=== PATIENT | female | born 1975 | race Caucasian/White ===

== ENCOUNTER 2016-10-03 20:27 | Inpatient (IN) | payer OTHER ==
--- NOTE | 2016-10-03 20:29 | EDPHY ---
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 Tonight, she was at home and then called a friend saying she needed help. History from friend and EMS; patient amnestic. Another co-worker went to her house and found her altered in the closet. The patient says I think I hit my head multiple times but no further history is available. She does not remember the event. She keeps pointing to her forehead where there is a small hematoma on the left side saying that it hurts there but no where else. REVIEW OF SYSTEMS: Eye: no change in vision Cardiac: no chest pain, unknown syncope Pulmonary: no SOB Abdomen: no vomiting or abdominal pain Musculoskeletal: no back pain or neck pain Neuro: no headache, denies weakness or numbness in extremities. A comprehensive 10 point review of systems and further history is otherwise unobtainable because of the patient's altered mental status on arrival. PAST MEDICAL HISTORY: Asthma Social history: No alcohol today. 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 General Appearance: Patient is alert but confused, does follow commands. Eyes: No scleral icterus. Extraocular motion intact. ENT, Mouth: Normal mucous membranes. No tongue laceration or abrasion. Left forehead hematoma 1.5 cm. Respiratory: Normal respiratory effort, breath sounds equal, lungs are clear to auscultation. Cardiovascular: Regular rate and rhythm. Gastrointestinal: Abdomen is soft and non tender. Neurological: Alert, oriented to 2016 but thinks it is August. Knows it is Monday. She is perseverating and continues to repeat: I think I hit my head multiple times. Speech otherwise fluent. Face symmetric, normal movement and sensation in all extremities. Skin: Warm and dry, no rashes. Musculoskeletal: No cervical, thoracic or lumbar spine tenderness. Psychiatric: Not agitated. Emergency Department course/MDM: Patient arrived as a limited trauma activation. Dr. Maravilla from Neurosurgery present on arrival to evaluate the patient. 2049: Patient still perseverating. Plan for trauma admission. Still in a collar. Patient evaluated personally by Dr. Maravilla and Dr. June in the emergency department. Admission for perseveration after probable head trauma. Will be seen by Cardiology because of abnormal EKG. I think seizure is less likely as she did not have incontinence or tongue biting. Constitutional: Initial Vital Signs Temperature (C) 37 C 10/03/16 21:07 Heart Rate 83 10/03/16 21:07 Respiratory Rate 18 10/03/16 21:07 Blood Pressure 106/76 10/03/16 21:07 O2 Sat (%) 97 10/03/16 21:07 O2 Delivery Mode Room Air Allergies/Adverse Reactions: Sulfa (Sulfonamide Antibiotics) Allergy (Mild, Verified 10/03/16 21:50) prochlorperazine [From Compazine] Allergy (Verified 10/03/16 21:05) prochlorperazine edisylate [From Compazine] Allergy (Verified 10/03/16 21:50) prochlorperazine maleate [From Compazine] Allergy (Verified 10/03/16 21:05) flu vaccine Allergy (Uncoded 10/03/16 21:50) Anaphylaxis Home Medications: Medication Instructions Recorded Albuterol [Ventolin Hfa Inhaler] 2 puffs IH Q6H PRN 10/03/16 Medical Decision Making - Diagnostics EKG Interpretation: 12-lead EKG interpreted by me; official reading is in trace master. My interpretation is ventricular bigeminy. Rate 83. Imaging: CT head and cervical spine reported to me by Dr. Isbell both negative. Differential Diagnosis: Differential diagnosis considered for head injury including but not limited to concussion, skull fracture, intraparenchymal contusion, subarachnoid, subdural and epidural hematoma. Consult/Admit Bed Type: [place] 852pm, [facility] 2150 will see tonight - Data Points Laboratory Results: Laboratory Results 10/03/16 20:29 10/03/16 20:29 10/03/16 10/03/16 20:29 20:24 WBC 12.92 H 10^3/uL (3.80-9.50) RBC 4.86 10^6/uL (4.18-5.33) Hgb 15.1 g/dL (12.6-16.3) Hct 45.0 % (38.0-47.0) MCV 92.6 fL (81.5-99.8) MCH 31.1 pg (27.9-34.1) MCHC 33.6 g/dL (32.4-36.7) RDW 11.9 % (11.5-15.2) Plt Count 285 10^3/uL (150-400) MPV 9.7 fL (8.7-11.7) Neut % (Auto) 65.5 % (39.3-74.2) Lymph % (Auto) 25.3 % (15.0-45.0) [place] % (Auto) 6.5 % (4.5-13.0) Eos % (Auto) 1.9 % (0.6-7.6) Baso % (Auto) 0.5 % (0.3-1.7) Nucleat RBC Rel Count 0.0 % (0.0-0.2) Absolute Neuts (auto) 8.45 H 10^3/uL (1.70-6.50) Absolute Lymphs (auto) 3.27 H 10^3/uL (1.00-3.00) Absolute Monos (auto) 0.84 H 10^3/uL (0.30-0.80) Absolute Eos (auto) 0.25 10^3/uL (0.03-0.40) Absolute Basos (auto) 0.07 10^3/uL (0.02-0.10) Absolute Nucleated RBC 0.00 10^3/uL (0-0.01) Immature Gran % 0.3 % (0.0-1.1) Immature Gran # 0.04 10^3/uL (0.00-0.10) PT 13.2 SEC (12.0-15.0) INR 1.01 (0.83-1.16) APTT 27.0 SEC (23.0-38.0) Sodium 140 mEq/L (134-144) Potassium 4.3 mEq/L (3.5-5.2) Chloride 105 mEq/L (97-110) Carbon Dioxide 26 mEq/l (22-31) Anion Gap 9 mEq/L (8-16) BUN 10 mg/dL (7-23) Creatinine 0.7 mg/dL (0.6-1.0) Estimated GFR > 60 Glucose 80 mg/dL (70-100) Calcium 9.2 mg/dL (8.5-10.4) TSH 3.750 uIU/mL (0.465-4.680) Beta HCG, Qual NEGATIVE Ethyl Alcohol < 10 mg/dL (0-10) Departure - Departure Disposition: [facility] Inpatient Acute Clinical Impression: Concussion, Ventricular bigeminy Condition: Fair
[2016-10-03 20:52] LABS: % IMMATURE GRANULYOCYTES 0.3 % (0.0-1.1); ABSOLUTE IMMATURE GRANULOCYTES 0.04 10^3/uL (0.00-0.10); ADD DIFF? NO; ADD MORPH? NO; ADD SCAN? NO; ATYPICAL LYMPHOCYTE FLAG 0 (0-99); FRAGMENT RBC FLAG 0 (0-99); HEMOGLOBIN 15.1 g/dL (12.6-16.3); LEFT SHIFT FLG 0 (0-99); LIPEMIA HEMOLYSIS FLAG 80 (0-99); MEAN CELL HEMOGLOBIN 31.1 pg (27.9-34.1); MEAN CELL HEMOGLOBIN CONCENTR. 33.6 g/dL (32.4-36.7); MEAN CELL VOLUME 92.6 fL (81.5-99.8); MEAN PLATELET VOLUME 9.7 fL (8.7-11.7); PLATELET CLUMPS FLAG 0 (0-99); PLATELET COUNT 285 10^3/uL (150-400); RED BLOOD CELL COUNT 4.86 10^6/uL (4.18-5.33); RED CELL DISTRIBUTION WIDTH 11.9 % (11.5-15.2)
[2016-10-03 20:53] LABS: INR 1.01 (0.83-1.16); PROTIME(PATIENT) 13.2 SEC (12.0-15.0)
[2016-10-03 21:02] LABS: ANION GAP 9 mEq/L (8-16); CALCIUM 9.2 mg/dL (8.5-10.4); CARBON DIOXIDE 26 mEq/l (22-31); CHLORIDE 105 mEq/L (97-110); CREATININE 0.7 mg/dL (0.6-1.0); ETHANOL SERUM < 10 mg/dL (0-10); GLOMERULAR FILTRATION RATE > 60; GLUCOSE 80 mg/dL (70-100); POTASSIUM 4.3 mEq/L (3.5-5.2); SODIUM 140 mEq/L (134-144)
--- NOTE | 2016-10-03 21:13 | CT ---
CT Head (Without Contrast) October 07, 2016 at 2048 hours. Indication: Head trauma. Altered mental status.. Technique: Standard noncontrast head CT protocol utilizing 5 mm thick collimated slices and field of view 23 cm. Dose reduction techniques were utilized. Findings: The brain is normally developed. No intracranial hemorrhage, mass lesion, swelling, or ex traaxial fluid collection. The ventricles are normal caliber and midline. The hernández-white matter has n ormal attenuation. The bones are unremarkable. Minimal mucous membrane thickening is seen in the ethm oid and maxillary sinuses.. Impression: Minimal chronic sinus related change. Otherwise unremarkable. Comment: Case was discussed Tate Moya PA-C on October 03, [address] Cervical Spine Without Contrast at 2048 hours History: Trauma. Technique: 1.25 mm helical images were obtained from the base of the skull through T2 without contras t. Reformatted 0.625 mm images were obtained and reviewed with multiplanar evaluation. Dose reduction techniques were utilized. Findings: No evidence for fracture. Disk heights are maintained. No significant spondylolisthesis. No evidence for prevertebral soft tissue swelling. No significant spinal canal or neural foraminal encr oachment. IMPRESSION: No evidence for acute fracture. Results discussed with Tate Moya PA-C..
[2016-10-03] MEDS ORDERED: ACETAMINOPHEN 325 MG TAB PO PRN (21:38)
--- NOTE | 2016-10-03 21:43 | CPEKG ---
Heart Rate: 83 RR Interval: 723 P-R Interval: 144 QRSD Interval: 108 QT Interval: 400 QTC Interval: 470 P [place]: 75 QRS [place]: 70 T Wave [place]: 66 EKG Severity - ABNORMAL ECG - EKG Impression: SINUS RHYTHM EKG Impression: VENTRICULAR BIGEMINY EKG Impression: PROBABLE LEFT ATRIAL ABNORMALITY EKG Impression: INCOMPLETE RIGHT BUNDLE BRANCH BLOCK EKG Impression: PROBABLE ANTEROSEPTAL INFARCT, AGE INDETERM Electronically Signed By: Eze Samaniego 03-Oct-2016 23:51:12
[2016-10-03] MEDS ORDERED: ALBUTEROL 60 PUFFS/8 GM MDI IH PRN (21:53)
[2016-10-04] MEDS ORDERED: ONDANSETRON DISINTEGRATING 4 MG TAB PO PRN (03:00)
[2016-10-04] MEDS ORDERED: ONDANSETRON DISINTEGRATING 4 MG TAB ONE (03:07)
--- NOTE | 2016-10-04 07:18 | GCON ---
[f rep st] CONSULTATION NEUROSURGICAL EMERGENCY ROOM CONSULTATION DATE OF CONSULTATION: 10/03/2016 CHIEF COMPLAINT: The patient is a 41-year-old woman with a concussion/closed head injury. HISTORY OF PRESENT ILLNESS: The patient has no significant past medical history , and was in her normal state of health today and spoke to her human resources office manager on the drive home. At some point shortly thereafter, she called that same person repeatedly asking for help. The human resources office manager called one of the patient 's neighbors whom she knew and worked with, who went over to the patient's house and found the dogs inside and the patient laying in the closet on the floor in a pile of clothing and very confused, but awake. Emergency Medical Service was activated and the porcelain buildup assistant arrived and found her in the same condition, confused, but awake and alert. She was transported to [facility] emergency room where a CT scan of the head and neck were preliminarily negative. She presents now for neurosurgical consultation. The patient notes pain in her forehead, as well as jaw pain and popping. She denies any focal neurologic deficits. PAST MEDICAL/SURGICAL HISTORY: ORIF of left wrist, ectopic requiring surgery. MEDICATIONS ON ADMISSION: Albuterol inhaler, and ibuprofen once in a while. Had cold medicine recently. DRUG ALLERGIES: Sulfa, Compazine, flu shot. SOCIAL HISTORY: The patient is and drinks socially, but does not smoke. She lives alone with 2 large dogs, one weighing about 150 pounds. FAMILY HISTORY: Noncontributory. NEUROLOGIC EXAMINATION: Patient is awake and alert, but confused. She knows the day of the week, but not the date. Her pupils are equal and reactive. Her extraocular movements are intact. Her face is symmetric. She has 5/5 motor strength throughout with reflexes and sensation within normal limits. Patient has no C-spine tenderness. On personal review of her brain and C-spine CT, both are unremarkable. She is having quite a bit of PVC's on the rhythm on her monitor. IMPRESSION/RECOMMENDATIONS: This is a 41-year-old woman with a closed head injury/concussion, with continued perseveration. I will clear her C-spine in the emergency room, and we will admit her to the step-down for q.1 hour neuro checks overnight and re-evaluate in the morning. I do not think there is any indication for seizure prophylaxis. We will obtain a 12 lead EKG and consult cardiology for evaluation of these frequent PVCs. /[id number]/MODL MTDD
--- NOTE | 2016-10-04 08:08 | GCON ---
[f rep st] CONSULTATION DATE OF CONSULTATION: 10/03/2016 REASON FOR EVALUATION: Fall and possible trauma. HISTORY OF PRESENT ILLNESS: 41-year-old healthy female admitted to the hospital this evening after found down in her closet by her co-worker/neighbor. She was in her usual state of health earlier today. She reports having eaten dinner. She reports while putting clothes away in her closet, "I hit my head." She contacted her neighbor requesting for help, where she was found down in her closet perseverating. She was brought to the emergency room by EMS. She was noted to have multiple PVCs en route. At present time, patient is with complaint of frontal head pain only, as well as left jaw pain. She denies headaches or visual changes. She denies chest pain or shortness of breath. She denies abdominal complaints. She denies extremity numbness or tingling. She denies neck or back pain. She denies any antecedent history of similar episodes. She denies a history of seizure disorder or migraine headaches. She denies any prior cardiac history. PAST MEDICAL HISTORY: Asthma. PAST SURGICAL HISTORY: Closed reduction of left wrist fracture, unilateral salpingo-oophorectomy, and basal cell skin carcinoma. MEDICATIONS: Asthma inhaler p.r.n. ALLERGIES: Sulfa. SOCIAL HISTORY: No significant alcohol or tobacco. 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 FAMILY HISTORY: Noncontributory. REVIEW OF SYSTEMS: Notable for above current neurologic concerns. Otherwise, negative 10 point review of systems. PHYSICAL EXAMINATION: VITAL SIGNS: Temperature 37, blood pressure 106/76, pulse 83, respirations 18. GENERAL: Patient is alert, appropriate, comfortable currently. PRIMARY SURVEY: ABC intact. SECONDARY SURVEY: HEENT: 2 cm small left frontal contusion with intact overlying skin. Scalp otherwise atraumatic. Pupils are equally round, react to light and accommodation. Extraocular muscles intact. Tympanic membranes clear bilaterally. No mid face tenderness, instability or step-off. Mild left TMJ tenderness with notable jaw click. No malocclusion noted. NECK: Trachea midline without crepitus. Posterior cervical spine nontender. HEART: Irregular without murmurs. LUNGS: Clear bilaterally. CHEST WALL: Nontender without step-offs or deformities. ABDOMEN: Soft, nontender, nondistended. Pelvis nontender. EXTREMITIES: Normal bilateral upper and lower extremities without tenderness, step-offs, or deformities. Normal thoracic and lumbar spines without tenderness. NEUROLOGIC: Patient is alert and appropriate to name and current orientation. She continues to perseverate, "I hit my head while putting my clothes away." LABORATORY DATA: White count 13, hemoglobin 15, platelets 285. INR 1.0. Electrolytes within reference range. TSH pending. test negative. Alcohol negative. CT head without acute injury; specifically, normal left TMJ. Cervical spine CT without acute injury. EKG: Sinus rhythm with multiple PVCs. Approximately 80 beats per minute. Images were directly reviewed with radiologist on-call. IMPRESSION: 1. First time syncopal episode with continued perseveration. 2. Multiple premature ventricular contractions/abnormal EKG. 3. Left jaw pain. PLAN: Patient was seen and evaluated with Dr. Gordillo at bedside. No evidence of direct trauma identified. Etiology of syncopal episode unclear at present time; query possible cardiac source, given patient's frequent PVCs and abnormal EKG. Case was reviewed with Dr. Rizvi from cardiology who will evaluate the patient this evening for further recommendations. She does not appear to have had evidence of seizure or migraine headache. Metabolic studies are currently unremarkable. TSH pending. No further trauma workup warranted at this time. Final recommendations to follow pending cardiology assessment and overnight course. /[id number]/MODL MTDD
--- NOTE | 2016-10-04 08:16 | CPEKG ---
Heart Rate: 70 RR Interval: 857 P-R Interval: 144 QRSD Interval: 106 QT Interval: 436 QTC Interval: 471 P [place]: 70 QRS [place]: 0 T Wave [place]: 60 EKG Severity - ABNORMAL ECG - EKG Impression: SINUS RHYTHM EKG Impression: VENTRICULAR TRIGEMINY EKG Impression: PROBABLE LEFT ATRIAL ABNORMALITY EKG Impression: INCOMPLETE RIGHT BUNDLE BRANCH BLOCK EKG Impression: PROBABLE ANTEROSEPTAL INFARCT, AGE INDETERM Electronically Signed By: Oliver Vance 05-Oct-2016 08:10:50
--- NOTE | 2016-10-04 09:05 | ECHO ---
[id number] + + [address] : : [place] [address] : : [phone] + Adult Echocardiographic Report + ---+ :Name: Fredy MERCADO Date: 10/04/2016 08:42 AM : : Hospital Admission Number: [id number] Location: 244: :: 1975 Gender: Female Height: 72 in : :Age: 41 yrs Race: WH Weight: 144 lb : :Reason For Study: Eval LV Fx : : BSA: 1.9 meters2 : :History: Ectopy : + ---+ MMode/2D Measurements & Calculations IVSd: 0.74 cm LVIDd: 4.2 cm FS: 33.8 % Ao root diam: 2.7 cm LVPWd: 0.84 cm LVIDs: 2.8 cm EDV(Teich): 77.4 ml ACS: 2.0 cm ESV(Teich): 28.6 ml LA dimension: 2.5 cm EF(Teich): 63.1 % Normal Measurement Values: + + :LVIDd (3.5-5.7cm) IVSd (0.6-1.1cm) LVPWd (0.6-1.1cm) Aortic Root (2.0-3.7cm)Left Atrium (1.5-4.0cm): :LV Vol(d) (76-115ml) LV Vol(s) (29-48ml) Ejec Fraction (50-65%)PV Gerardo (0.6- 1.2m/s) TV Gerardo (0.4-1.0m/s) : :MV E Gerardo (0.8-1.0m/s)MV A Gerardo (0.3-1.0m/s)LVOT Gerardo (0.7-1.2m/s) Asc Ao Gerardo ( 0.9-1.8m/s) : + + Doppler Measurements & Calculations MV E max gerardo: Ao V2 max: LV V1 max: PA V2 max: 72.6 cm/sec 90.9 cm/sec 62.7 cm/sec 74.7 cm/sec MV A max gerardo: Ao max PG: LV V1 max PG: PA max P.8 cm/sec 3.3 mmHg 1.6 mmHg 2.2 mmHg MV E/A: 1.3 Left Ventricle The left ventricle is normal in size and function. There is normal left ventricular wall thickness. The left ventricular ejection fraction is normal. Ejection Fraction = 65%. No regional wall motion abnormalities noted. Multiple PVC's noted during exam. Right Ventricle The right ventricle is normal in size and function. Atria The left atrial size is normal. Right atrial size is normal. Mitral Valve The mitral valve is normal in structure and function. There is no evidence of mitral valve prolapse. There is no mitral valve stenosis. There is no mitral regurgitation noted. Tricuspid Valve The tricuspid valve is normal in structure and function. No tricuspid regurgitation. Aortic Valve The aortic valve is normal in structure and function. The aortic valve is trileaflet. There is no aortic stenosis. There is no aortic insufficiency. Pulmonic Valve The pulmonic valve is normal in structure and function. There is no pulmonic valvular regurgitation. Great Vessels The aortic root is normal size. Pericardium/Pleural There is no pericardial effusion. Conclusion A complete two-dimensional transthoracic echocardiogram was performed (2D, M-mode, Doppler and color flow Doppler). The left ventricle is normal in size and function. The left ventricular ejection fraction is normal. Ejection Fraction = 65%. No regional wall motion abnormalities noted. Multiple PVC's noted during exam. The right ventricle is normal in size and function. The left atrial size is normal. Right atrial size is normal. The mitral valve is normal in structure and function. The tricuspid valve is normal in structure and function. The aortic valve is normal in structure and function. The aortic valve is trileaflet. The pulmonic valve is normal in structure and function. The aortic root is normal size. There is no pericardial effusion. No prior echo Final Reading Physician: Dr Aarti Olson electronically signed on 10/04/2016 09:03 AM Ordering Physician: Pepe Rizvi Performed By: Gavin Hampton, ANDREYCS
[2016-10-04] MEDS ORDERED: NS 500 ML IV SCH (10:15)
[2016-10-04] MEDS ORDERED: D5W IV ONE (11:00)
[2016-10-04] MEDS ORDERED: PROCAINAMIDE HCL IV ONE (11:00)
--- NOTE | 2016-10-04 11:13 | GCON ---
[f rep st] CONSULTATION CARDIOLOGY CONSULT DATE OF CONSULTATION: 10/04/2016 CHIEF COMPLAINT: Possible syncope. HISTORY OF PRESENT ILLNESS: We were asked by Dr. Gordillo to visit with the patient. 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 She has no significant medical history and no known cardiovascular history. She was in her usual state of good health yesterday, had her normal amount of caffeine (5 shots of espresso). She was at a meeting in [place] and drove home. She was fine on the drive home. She then was putting away some clothes in her closet and apparently fell and hit her head on a garme nt hook. She called her hospital security officer at that point saying that she needed help. A neighbor came o renny and found her in her closet perseverating that she had hit her head. There were no other focal n eurological deficits. She was brought to the emergency department and evaluated by Dr. June and Dr. Taiwo zamora. A head CT and a neck CT were unremarkable. Her mental status did clear over the course of the ER, bu t initially she was amnestic to the event. She really does not recall why she fell and had no preced ing cardiovascular symptoms. Specifically, she has not had palpitations, presyncope, or chest pain. In general, she has never had cardiovascular symptoms. When she exercises, she does not have any dif ficulties. She has never had a personal history of syncope, and there is no family history of sudden cardiac or premature coronary disease. On the monitor, she has been found to have frequent monomorphic PVCs with occasional ventricular coup lets. Upon my evaluation this morning, she states that she has a mild headache but otherwise feels e ssentially back to baseline. Her theory is that she fell on a shoe and hit her head on the garment h ook hard enough to cause the concussion. REVIEW OF SYSTEMS: Last week, she did have an upper respiratory infection which did not require anti biotics. She took NyQuil and a Ventolin inhaler for this. She has not taken any [id number]-[id number] me dications for 4 days. CARDIOVASCULAR: As per HPI. Otherwise, a full 10-point review of systems is performed and is negative. ALLERGIES: Sulfa and prochlorperazine. PAST MEDICAL HISTORY: 1. Reactive airways disease that is well controlled and intermittent. 2. History of left wrist surgery. 3. History of ectopic , requiring unilateral salpingo-oophorectomy. 4. Basal cell cancer of the skin. MEDICATIONS: Albuterol inhaler. She does not use [id number]-[id number] supplements. SOCIAL HISTORY: The patient is . She does not smoke cigarettes. She does drink alcohol but had not had alcohol yesterday. 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 FAMILY HISTORY: Negative for premature coronary disease or sudden cardiac . PHYSICAL EXAM: VITAL SIGNS: Blood pressure is 100/60. Heart rate is 66. Oxygen saturation 97% on room air. Her temperature is normal. GENERAL: Well-appearing middle-aged female in no acute distre ss. HEENT: Sclerae clear and free of jaundice. Mucous members are moist. Small hematoma over her left forehead. CARDIOVASCULAR: JVP less than 10. Carotids equal and 2+ without bruit. Regular rat e and rhythm without murmur, rub, or gallop. Occasional ectopy. LUNGS: Clear to auscultation bilat erally without wheezes, rhonchi, or rales. ABDOMEN: Soft, nontender, and nondistended without bruit s, masses, or hepatosplenomegaly. EXTREMITIES: Warm and well perfused without cyanosis, clubbing, o r edema. NEURO: Alert and oriented x3 without gross focal neurologic deficits. Appropriate mood an d affect. LABORATORY DATA: White count 12.9, hematocrit 45, platelets are 285. Coagulation parameters are nor mal. Basic metabolic panel, magnesium, and TSH normal. Beta hCG negative. Alcohol level is less th an 10. EKG x2, reviewed by me, shows sinus rhythm. Nonspecific intraventricular conduction delay. Abnormal ST contour of V1 and V2. PVCs with likely RVOT origin. Echocardiogram, reviewed by me: Normal LV size and systolic function with normal left ventricular wa ll motion and wall thickness. Multiple PVCs during the exam. No significant valvular disease. Head CT and cervical spine CT show no acute process. ASSESSMENT AND PLAN: A 41-year-old female with possible syncope and associated head trauma. She has frequent PVCs on telemetry, likely RVOT in origin. Her baseline EKG is not normal, with a nonspecif ic interventricular conduction delay and an abnormal ST contour in V1 through V2. She has never had syncope or palpitations before. No family history of sudden cardiac . 1. Possible syncope: For further evaluation, she will have a cardiac MRI to evaluate for arrhythmog enic right ventricular dysplasia, a treadmill test to evaluate for occult coronary disease. We will check a troponin. She will also have a procainamide challenge to evaluate for Brugada syndrome. If these tests are normal, she will have a 48-hour Holter and follow up with Dr. Augustine in the outpatient s etting. 2. Closed head injury: She appears to be recovering well. She is being evaluated by Dr. Cheikh denis. 3. History of asthma: Currently asymptomatic. Thank you for allowing us to participate in this patient's care. We will follow with you. /[id number]/MODL
[2016-10-04 11:42] LABS: ANION GAP 11 mEq/L (8-16); CALCIUM 7.5 mg/dL (8.5-10.4); CARBON DIOXIDE 20 mEq/l (22-31); CHLORIDE 110 mEq/L (97-110); CREATININE 0.6 mg/dL (0.6-1.0); GLOMERULAR FILTRATION RATE > 60; GLUCOSE 71 mg/dL (70-100); MAGNESIUM 1.8 mg/dL (1.6-2.3); POTASSIUM 3.4 mEq/L (3.5-5.2); SODIUM 141 mEq/L (134-144)
[2016-10-04 11:53] LABS: TROPONIN I < 0.012 ng/mL (0-0.034)
[2016-10-04] MEDS ORDERED: MIDAZOLAM 2 MG/2 ML VIAL ONE ×2 (11:55→11:56)
[2016-10-04] MEDS ORDERED: ATROPINE SULFATE 1 MG/10 ML SYR ONE (11:56)
[2016-10-04] MEDS ORDERED: fentaNYL 100 MCG/2 ML INJ ONE (11:56)
--- NOTE | 2016-10-04 13:04 | CPIP ---
[f rep st] INVASIVE CARDIAC PROCEDURE PROCEDURE: Infusion of procainamide to assess for underlying Brugada pattern on electrocardiogram. INDICATIONS: Possible syncope, multiple PVCs, abnormal EKG. COMPLICATIONS: None. DESCRIPTION OF PROCEDURE: Patient was established to telemetry. Blood pressure monitoring was perfo rmed every 2-1/2 minutes. Continuous pulse ox was performed. EKGs were performed at baseline, every 1 minute per protocol during procainamide infusion, and then every 15 minutes for the first hour of recovery, and then she will have 1 additional EKG at 4 hours of recovery. FINDINGS: Resting EKG shows sinus rhythm, occasional monomorphic PVCs. Nonspecific interventricular conduction delay and subtle abnormality of the ST contour in leads V1 and V2. With infusion, there was lessening of her PVCs. No significant change in the ST segments. The patient tolerated the proc edure well with no symptoms. Blood pressure remained stable. CONCLUSIONS: Negative procainamide challenge. Await recovery EKGs. /[id number]/MODL
--- NOTE | 2016-10-04 15:58 | PDCARCONS ---
Cardiology Consult Reason for Consult: Syncope, possible Chief Complaint: Possible syncope. Electrophysiology consultation Requesting Physician: Dr. Aarti Olson History of Present Illness: I have been asked to visit with Dr. Isabel by my partner Dr. Aarti Olson. Lashanda is a 41-year-old female who had a syncopal event yesterday and a resultant concussion. She states that she was in her closet at home and thinks that she tripped and fell over her shoe. She was unconscious for any where between 5 minutes to 20 minutes based on her history. There was no preceding chest discomfort, palpitations or dizziness. She has had 2 concussions before, 1 of which resulted into a subarachnoid hemorrhage. She has not had any prior syncopal events. There is no family history of syncope sudden cardiac . I visited with her in [facility] when she was having her procainamide challenge test. She states that she is feeling back to baseline. History Information - Allergies/Home Medication List Allergies/Adverse Reactions: Sulfa (Sulfonamide Antibiotics) Allergy (Mild, Verified 10/03/16 21:50) prochlorperazine [From Compazine] Allergy (Verified 10/03/16 21:05) prochlorperazine edisylate [From Compazine] Allergy (Verified 10/03/16 21:50) prochlorperazine maleate [From Compazine] Allergy (Verified 10/03/16 21:05) flu vaccine Allergy (Uncoded 10/03/16 21:50) Anaphylaxis Home Medications: Albuterol [Ventolin Hfa Inhaler] 2 puffs IH Q6H PRN 10/03/16 [Last Taken ] I have personally reviewed and updated: family history, medical history, social history - Past Medical History asthma - Social History Smoking Status: Never smoked Alcohol Use: Rarely Drug Use: None Physical Exam Temp Pulse Resp BP Pulse Ox 36.7 C 79 14 102/53 L 96 10/04/16 12:00 10/04/16 14:00 10/04/16 14:00 10/04/16 14:00 10/04/16 14:00 Constitutional: no apparent distress, appears nourished Cardiovascular: regular rate and rhythym Neurologic: AAOx3 Psychiatric: interacting appropriately, not anxious, thought process linear Lab and Imaging 10/03/16 20:29 10/04/16 10:40 WBC 12.92 10^3/uL (3.80-9.50) H 10/03/16 20: RBC 4.86 10^6/uL (4.18-5.33) 10/03/16 20: Hgb 15.1 g/dL (12.6-16.3) 10/03/16 20: Hct 45.0 % (38.0-47.0) 10/03/16 20: MCV 92.6 fL (81.5-99.8) 10/03/16 20: MCH 31.1 pg (27.9-34.1) 10/03/16: MCHC 33.6 g/dL (32.4-36.7) 10/03/16: RDW 11.9 % (11.5-15.2) 10/03/16: Plt Count 285 10^3/uL (150-400) 10/03/16: MPV 9.7 fL (8.7-11.7) 10/03/16 20: Neut % (Auto) 65.5 % (39.3-74.2) 10/03/16: Lymph % (Auto) 25.3 % (15.0-45.0) 10/03/16: [place] % (Auto) 6.5 % (4.5-13.0) 10/03/16: Eos % (Auto) 1.9 % (0.6-7.6) 10/03/16: Baso % (Auto) 0.5 % (0.3-1.7) 10/03/16: Nucleat RBC Rel Count 0.0 % (0.0-0.2) 10/03/16: Absolute Neuts (auto) 8.45 10^3/uL (1.70-6.50) H 10/03/16 20: Absolute Lymphs (auto) 3.27 10^3/uL (1.00-3.00) H 10/03/16 20: Absolute Monos (auto) 0.84 10^3/uL (0.30-0.80) H 10/03/16 20:29 Absolute Eos (auto) 0.25 10^3/uL (0.03-0.40) 10/03/16 20:29 Absolute Basos (auto) 0.07 10^3/uL (0.02-0.10) 10/03/16 20:29 Absolute Nucleated RBC 0.00 10^3/uL (0-0.01) 10/03/16 20:29 Immature Gran % 0.3 % (0.0-1.1) 10/03/16 20: Immature Gran # 0.04 10^3/uL (0.00-0.10) 10/03/16 20: PT 13.2 SEC (12.0-15.0) 10/03/16 20: INR 1.01 (0.83-1.16) 10/03/16 20: APTT 27.0 SEC (23.0-38.0) 10/03/16 20:29 Sodium 141 mEq/L (134-144) 10/04/16 10:40 Potassium 3.4 mEq/L (3.5-5.2) L 10/04/16 10:40 Chloride 110 mEq/L (97-110) 10/04/16 10:40 Carbon Dioxide 20 mEq/l (22-31) L D 10/04/16 10:40 Anion Gap 11 mEq/L (8-16) 10/04/16 10:40 BUN 11 mg/dL (7-23) 10/04/16 10:40 Creatinine 0.6 mg/dL (0.6-1.0) 10/04/16 10:40 Estimated GFR > 60 10/04/16 10:40 Glucose 71 mg/dL (70-100) 10/04/16 10:40 Calcium 7.5 mg/dL (8.5-10.4) L D 10/04/16 10:40 Magnesium 1.8 mg/dL (1.6-2.3) 10/04/16 10:40 Troponin I < 0.012 ng/mL (0-0.034) 10/04/16 10:40 TSH 3.750 uIU/mL (0.465-4.680) 10/03/16 20:24 Beta HCG, Qual NEGATIVE 10/03/16 20:29 Ethyl Alcohol < 10 mg/dL (0-10) 10/03/16 20:29 Visualized and Interpreted EKG results: Yes EKG additional interpertation: Normal sinus rhythm, intraventricular conduction delay with QRS duration 110 milliseconds. Incomplete right bundle branch block with minimal ST elevations in V1 and V2. Frequent PVCs which are of a left bundle branch block morphology, inferior axis with QRS transition between V4 and V5. Telemetry: Sinus rhythm with frequent PVCs Echocardiogram: Normal LV function. No significant valvular heart disease. 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 She is not certain that she had syncope, she thinks that she tripped and fell over her shoe and had subsequent concussion. Baseline ECG shows nonspecific intraventricular conduction delay, incomplete right bundle-branch block and minimal ST elevations in lead V1 and V2. Procainamide challenge test was done, this is ruled out Brugada syndrome. There are no structural abnormalities on echocardiogram. I have recommended cardiac MRI rule out ARVD and sarcoidosis ( she has a longstanding history of mild exercise-induced asthma for which she uses Ventolin inhaler.), this is being done today. She is asymptomatic with PVCs and as such does not require treatment for them. We will perform a 48 hour Holter monitor and also exercise treadmill to assess for sustained ventricular tachycardia. If she has any recurrent episodes of non postural dizziness or syncope, implantable loop recorder will need to be placed. She does not have good sleep habits, she sleeps approximately 5 hours every day and drinks 5 cups of coffee a day. This may be contributing to her PVCs and should be modified.
[2016-10-04] MEDS ORDERED: GADOBUTROL 10 ML VIAL IVP ONE (16:12)
--- NOTE | 2016-10-04 18:30 | CPEKG ---
Heart Rate: 71 RR Interval: 845 P-R Interval: 144 QRSD Interval: 106 QT Interval: 420 QTC Interval: 457 P Elgin: 65 QRS Elgin: -42 T Wave Elgin: 56 EKG Severity - ABNORMAL ECG - EKG Impression: SINUS RHYTHM EKG Impression: INCOMPLETE RBBB AND LAFB EKG Impression: PROBABLE ANTEROSEPTAL INFARCT, AGE INDETERM Electronically Signed By: Oliver Vance 05-Oct-2016 08:13:22
[2016-10-04] MEDS ORDERED: PROTOCOL POTASSIUM 1 DOSE MISC PRN (19:57)
[2016-10-04] MEDS ORDERED: PROTOCOL MAGNESIUM 1 DOSE IV PRN (20:01)
[2016-10-04 20:28] LABS: POTASSIUM 4.1 mEq/L (3.5-5.2)
[2016-10-05 06:24] VITALS: O2SAT 95
[2016-10-05 07:32] VITALS: BP 90/44; PULSE 83; RESP 20
[2016-10-05 07:48] VITALS: TEMP 97.6
--- NOTE | 2016-10-05 08:01 | SOAPPROG ---
SOAP Progress Note Assessment/Plan: Assessment: 43 yo F with mild closed head injury from possible syncopal episode Plan: stable cardiology work up in progress, awaiting results of cardiac MRI plan to dc home when cleared by Cardiology, hopefully this am PT/OT please call with neuro changes pt seen by Dr Maravilla 10/05/16 07:59 Subjective: no headaches, no N/V. No weakness. "I feel fine." Objective: Vital Signs Temp Pulse Resp BP Pulse Ox 36.4 C 83 20 90/44 L 95 10/05/16 07:32 10/05/16 07:32 10/05/16 07:32 10/05/16 07:32 10/05/16 07:32 Laboratory Results 10/04/16 20:10 10/04/16 10/05/16 10/06/16 05:59 05:59 05:59 Intake Total 200 Balance 200 PT 13.2 SEC (12.0-15.0) 10/03/16 20:29 INR 1.01 (0.83-1.16) 10/03/16 20:29 AAOX4, +FC PERRL, EOMI, no facial droop 5/5 + light touch ICD10 Worksheet Patient Problems: Problems Problem Status Diagnosed Concussion Acute Ventricular bigeminy Acute
[2016-10-05 08:40] LABS: POTASSIUM 4.4 mEq/L (3.5-5.2)
--- NOTE | 2016-10-05 08:47 | MR ---
MRI Cardiac, Without and With Contrast at 1628 hours History: Unexplained syncope. Abnormal ECG, PVCs. Evaluate for ARVD. Technique: MRI was performed of the heart using a 1.5 Leana MRI system. Long and short-axis images we re obtained of the heart with FIESTA, double inversion-recovery, and triple inversion-recovery images . Multiphase postcontrast imaging was performed after 10 mL of Gadavist IV contrast. Delayed postcont rast imaging was also obtained in both planes. Findings: Cardiac size is normal. The thickness and signal intensity of the myocardium of the left an d right ventricle are normal. No evidence of delayed myocardial enhancement. No focal wall motion abn ormality is visualized. No evidence for soft tissue mass or abnormal enhancement. No evidence for per icardial effusion. Thoracic aorta is normal in size and appearance. Cardiac analysis estimates left ventricular ejection fraction at 54%. Normal 54-74%. Stroke volume 47 mL, normal 61 to 111 mL. In diastolic volume 87.6 mL, normal 96 to 174 mL. End systolic volume 40.5 mL, normal 27 to 71 mL. IMPRESSION: Normal appearance of the myocardium with no findings to suggest arrhythmic right ventricu lar dysplasia. There is borderline low ejection fraction and diminished stroke-volume. No focal wall motion abnormality. This was also reviewed by Dr. Bob Germain, who concurs.
--- NOTE | 2016-10-05 09:31 | PDCARPN ---
Cardiology Progress Note Assessment/Plan: Assessment/plan: 41 yo F admitted with fall complicated by concussion. Question syncope vs mechanical fall. Freq monomorphic PVCs on telemetry. Cardiac work up: procainamide challenge, cardiac MRI, echo, troponin all reassuring for structurally normal heart. 1. Possible syncope and PVCs: PVCs are likely benign. OK to discharge. 48 hour Holter and ETT as well as follow up with Dr. Augustine in the next several days. If recurrent syncope, consider LINQ monitor. Rec oTC mag suppl and fish oil. Less caffeine. 2. Concussion: stable per neurosurg. 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 No visual changes. No CP or palpitations. Reviewed/Discussed With: multidisciplinary team, other Objective: Vital Signs (8 Hrs) Temp Pulse Resp BP Pulse Ox 10/05/16 07:32 36.4 C 83 20 90/44 L 95 10/05/16 06:00 70 95 10/05/16 04:00 59 L 14 91/60 L 94 Intake/Output (24 Hrs) 10/04/16 10/05/16 10/06/16 05:59 05:59 05:59 Intake Total 200 Balance 200 Intake: Oral (ml) 200 Other: Weight 65.6 kg Number of Voids Toilet 2 2 NAD RRR no m/r/g Lungs CTAB No edema Reviewed cardiac MRI with radiology: normal myocardium. NO evidence of ARVD. Result Diagrams: 10/03/16 20:29 10/05/16 08:00 Cardiac Labs: Cardiac Lab Results (72 Hrs) 10/04/16 10:40 Troponin I < 0.012 Telemetry: NSR, occ PVCs ICD10 Worksheet Patient Problems: Problems Problem Status Diagnosed Concussion Acute Ventricular bigeminy Acute
--- NOTE | 2016-10-05 11:37 | GDS ---
[f rep st] DISCHARGE SUMMARY ADMISSION DIAGNOSES: 1. Closed head injury. 2. Possible syncopal episode. DISCHARGE DIAGNOSES: Closed head injury. HISTORY AND PHYSICAL: Physical please see admission history and physical. COURSE: The patient is a 41-year-old female, who was admitted to [facility] on 10/03. She apparently fell while in her closet, and struck her head. She was evaluated at the [facility] Emergency Department and evaluated for her head injury. She was admitted for o bservation, and Cardiology was consulted for workup of her possible syncope. They performed an echoc ardiogram and EKG as well as a Procainamide infusion to determine for underlying Brugada. Her cardia c MRI was negative for structural abnormality. Her initial EKG showed a sinus rhythm with some PVCs; however, she was not symptomatic to this. Her headache and confusion improved, and she did well wit h physical therapy and occupational therapy. She was tolerating a regular diet and ambulating on her own. She was discharged home in stable condition on 10/05/2016. Patient was discharged with a clos ed head injury instructions. I recommended that she continue [id number] magnesium supplementat ions. /[id number]/MODL
== END 2016-10-05 09:44 | disposition home or self-care (01) | DRG 90 ==
LOC: EDUNIT# → F2N 22:00
PROVIDERS: ADMIT Neurological Surgery; ATTEND Neurological Surgery
PROC: 3E033KZ Introduction of Other Diagnostic Substance into Peripheral Vein, Percutaneous Approach (ICD-10-PCS; principal; 2016-10-04)
DX: S06.0X9A Concussion with loss of consciousness of unspecified duration, initial encounter (principal); W19.XXXA Unspecified fall, initial encounter; Y92.013 Bedroom of single-family (private) house as the place of occurrence of the external cause; R55 Syncope and collapse; J45.909 Unspecified asthma, uncomplicated
CPT/HCPCS: 92523-GN; A9585; G0480; J0461; J2250; J2690; J3010